=== PATIENT | male | born 1940 | race Caucasian/White ===

== ENCOUNTER 2022-09-26 00:09 | Emergency (ER) | payer OTHER, SELFPAY ==
[2022-09-26] VITALS (39 sets, daily range): BP systolic 93–133; BP diastolic 45–95; PULSE 111–131; RESP 11–28; O2SAT 92–100
--- NOTE | ~2022-09-26 | XR_ITS ---
XR chest 1V portable 09/26/2022 00:43 Indication: Cough Procedure: AP portable chest Comparison: No prior studies for comparison. Findings: Shallow inspiration. Diffuse bilateral airspace disease. No significant effusion or pneumot horax. No acute osseous abnormality. Impression: 1: Diffuse bilateral airspace disease may represent edema or pneumonia. Reviewed, dictated and finalized at location A. Impression: 1: Diffuse bilateral airspace disease may represent edema or pneumonia.
[2022-09-26 01:25] LABS: Influenza A QL RT-PCR Negative (Negative); Influenza B QL RT-PCR Negative (Negative); RSV RNA, RT-PCR Negative (Negative); SARS-CoV-2 RNA PCR Negative
--- NOTE | 2022-09-26 01:34 | ED.GENADULT ---
HPI - General Adult General Chief complaint: Upper Respiratory Infection Stated complaint: ?RSV Time Seen by Provider: 09/26/22 00:32 History of Present Illness HPI narrative: Who presents the emergency department with chief complaint of cough. Per the longterm patient is a hospice patient and has had a cough and is also not been eating well for the last several days it had issues with his blood sugar running in the 60s and 70s and the family was concerned and the nurse at the longterm was concerned. The family states they were worried that he may have pneumonia Related Data Allergies Allergy/AdvReac Type Severity Reaction Status Date / Time donepezil [From Aricept] Allergy Unknown Verified 09/26/22 01:44 [id number] Reductase Allergy Unknown Verified 09/26/22 01:44 Inhibitor Review of Systems Review of Systems: A 10 system review of systems was completed on the patient and is negative except for what is stated in the HPI. Nursing and ancillary documentation was reviewed. PMFSH Comments Patient has history of Lewy body dementia Parkinson's and is currently a hospice patient Patient is a resident of local longterm Exam Narrative: GENERAL: Well-appearing, well-nourished, and in no acute distress. HEAD: Normocephalic, atraumatic. EYES: PERRLA and EOMI. ENT: Nares clear, no rhinorrhea or epistaxis. Mucous membranes moist. NECK: Supple. CHEST: Clear to auscultation. No respiratory distress. HEART: Regular rate and rhythm. No murmur heard. Normal peripheral pulses. ABDOMEN: Soft, nontender, nondistended, normal active bowel sounds. EXTREMITIES: Normal range of motion. No edema. SKIN: Warm, dry, no rash. NEURO: Patient is at his neurological baseline PSYCH: Normal mood and affect. Course Vital Signs Vital signs: Vital Signs Pulse Rate 113 H 09/26/22 00:14 Respiratory Rate 14 09/26/22 00:14 Blood Pressure 100/59 L 09/26/22 00:14 Pulse Oximetry 95 09/26/22 00:14 Oxygen Delivery Room Air 09/26/22 00:14 Pulse Rate 113 H 09/26/22 00:14 Respiratory Rate 14 09/26/22 00:14 Blood Pressure 100/59 L 09/26/22 00:14 Pulse Oximetry 95 09/26/22 00:14 Oxygen Delivery Room Air 09/26/22 00:14 Medical Decision Making Vital Signs Vital Signs: Vital Signs Pulse Rate 113 H 09/26/22 00:14 Respiratory Rate 14 09/26/22 00:14 Blood Pressure 100/59 L 09/26/22 00:14 Pulse Oximetry 95 09/26/22 00:14 Oxygen Delivery Room Air 09/26/22 00:14 Pulse Rate 113 H 09/26/22 00:14 Respiratory Rate 14 09/26/22 00:14 Blood Pressure 100/59 L 09/26/22 00:14 Pulse Oximetry 95 09/26/22 00:14 Oxygen Delivery Room Air 09/26/22 00:14 Lab Data Labs: Lab Results 09/26/22 Range/Units 00:43 Influenza A (RT-PCR) Negative (Negative) Influenza B (RT-PCR) Negative (Negative) RSV (RT-PCR) Negative (Negative) SARS-CoV-2 RNA (RT-PCR) Negative Discharge Plan Discharge Clinical Impression: Pneumonia Patient Disposition: Home, Self-Care Condition: Stable Instructions: Antibiotic Form, Bacterial Pneumonia (DC) Additional Instructions: The COVID test RSV and flu test were negative. Please discuss with the patient's primary provider about holding insulin dosing if the patient is not eating Prescriptions: New benzonatate 200 mg capsule 200 mg PO TID PRN (Reason: cough) Qty: 21 0RF levofloxacin 750 mg tablet 750 mg PO DAILY Qty: 7 0RF Follow-up/Referrals: Darío Yin BRAKE RIDER [Primary Care Provider] - Time of Disposition: 02:00
[2022-09-26] MEDS: BENZONATATE 100 MG CAPSULE 200 MG PO (02:15)
[2022-09-26] MEDS: levoFLOXacin 750 MG TABLET PO (02:16)
== END 2022-09-26 05:30 ==
PROVIDERS: Emergency Provider Emergency Medicine; PCP Nurse Practitioner Family
DX: J18.9 Pneumonia, unspecified organism (principal); Z20.822 Contact with and (suspected) exposure to COVID-19; G31.83 Neurocognitive disorder with Lewy bodies; F02.80 Dementia in other diseases classified elsewhere, unspecified severity, without behavioral disturbance, psychotic disturbance, mood disturbance, and anxiety; G20 Parkinson's disease
CPT/HCPCS: 71045; 87502; 87637; 99283; A9270; U0003; U0005